=== PATIENT | male | born 1990 | race Caucasian/White ===

== ENCOUNTER 2019-10-11 19:18 | Emergency (ER) | payer MEDICAID, SELFPAY ==
[2019-10-11 19:20] VITALS: BP 137/85; PULSE 90; RESP 18; TEMP 36.8; O2SAT 98; BMI 21.7
--- NOTE | 2019-10-11 20:21 | ED.VIS.GEN ---
History of Present Illness Chief Complaint: Bite Informant: Patient Narrative: Patient is a previously healthy 29-year-old male who presents to the emergency department for a dog bite to bilateral upper extremities. He states that it was his neighbors dog bit him. He did approach the dog and thought it was being friendly. Biting in both on the right and left forearm. The neighbor is at bedside with him currently. He states that the dog is up-to-date on all vaccinations. Dog can be monitored. Patient denies any loss of sensation or loss of motor strength in his hands and arms. This happened just prior to arrival in the ED. He is not sure his last tetanus shot. There are multiple puncture wounds on the right forearm. There is a laceration with other puncture wounds on the left forearm. He denies any other injury. Bleeding controlled prior to arrival in the ED. Past Medical History - Allergies and Home Meds Allergies/Adverse Reactions: Allergies No Known Allergies Allergy (Verified 01/10/13 11:17) Primary Care Physician: Care Physician,No Primary [Primary Care Provider] - 7 Days for suture removal Tex Bernal III, MD [[facility]] - Prior records reviewed: Yes Past Medical History: None Surgical History: no surgical history Smoking Status: Former smoker Review of Systems All systems negative except as indicated General: Denies: Chills, Fever Eyes: Denies: Visual changes - bilaterally ENT: Denies: Bilateral ear pain Cardiovascular: Denies: Chest pain Respiratory: Denies: Dyspnea, Cough Gastrointestinal: Denies: Abdominal pain, Nausea, Vomiting Musculoskeletal: Reports: Extremity Pain. Denies: Neck pain, Back pain Skin: Reports: Wounds Neurological: Denies: Headache Hematologic: Denies: Easy bruising, Easy bleeding Physical Exam Vital Signs/Narrative: Vital Signs Temp Pulse Resp BP Pulse Ox 10/11/19 19:20 98.2 F 90 18 137/85 H 98 Inital Vital Signs reviewed: Yes General: Well nourished, Well developed Head: Normocephalic, Atraumatic Eyes: Perrl, EOMI ENT: Moist mucous membranes Neck: Supple, Nontender Cardiovascular: Regular rate, Regular rhythm Respiratory: No distress Abdomen: Nondistended Back: Nontender Extremities: - - There are 3 separate puncture wounds on the right forearm. No active bleeding. Left forearm has a 1.5 cm laceration with some adipose exposed. No foreign bodies appreciated. No active bleeding. There are multiple other puncture wounds surrounding that site. Skin: Negative for: Rash Neurological: Alert, Oriented x3 Psychological: Normal affect, Normal Mood Diagnostic/Tx/Re-eval - Medical Decision Making Patient presents to the ED for dog bite. There is very low risk of rabies as this does seem like a provoked attack as he did approach the dog. He has not known the dog. It is a neighbors dog and he is not currently present at bedside and states that it is vaccinated. Patient's gaping laceration was loosely approximated with 2 sutures. Everything was rinsed out well with normal saline and chlorhexidine. Antibiotic ointment was applied. He needs to follow-up with his PCP. He does not have a listed so he was given 1 from the no doc list. Sutures need removed in 7 to 10 days. He is to monitor for evidence of infection. He understands and is agreeable this plan. Will discharge home in stable condition. He is sent home with a prescription for Augmentin for prophylactic coverage. Procedures Procedure(s): Laceration repair: Informed consent was obtained before procedure started. The appropriate timeout was taken. The area was prepped and draped in the usual sterile fashion. The wound was copiously irrigated. 2 5-0 Ethilon simple interrupted sutures were placed. It was loosely approximated due to infection risk. Antibiotic ointment placed over this. A dressing was applied to the area and anticipatory guidance, as well as standard post procedure care, was explained. Return precautions are given. The patient tolerated the procedure well without any apparent complications. Follow-up visit set for suture removal and evaluation of laceration. ED Disposition - Plan for ED Patient: Disposition: Home or Assisted Living Diagnosis: Dog bite of arm Instructions: ED BITE Dog Prescriptions: Amox/Clavulanate Tablet [Augmentin Tablet] 875 mg PO Q12H #14 tab Transmission Status: Received by [id number] Referrals: Care Physician,No Primary [Primary Care Provider] - 7 Days for suture removal Tex Bernal III, MD [[facility]] -
[2019-10-11] MEDS: Diphth,Pertuss(Acell),Tet Vac 0.5 ML Vial IM (20:25)
[2019-10-11 20:30] VITALS: RESP 16
== END 2019-10-11 20:31 | disposition home or self-care (01) ==
PROVIDERS: Emergency Provider Emergency Medicine
DX: S51.812A Laceration without foreign body of left forearm, initial encounter (principal); W54.0XXA Bitten by dog, initial encounter; Z87.891 Personal history of nicotine dependence
CPT/HCPCS: 12001; 90471; 90715; 99283